=== PATIENT | female | born 1970 | race Caucasian/White ===

== ENCOUNTER 2018-02-14 08:58 | Outpatient (CLI) | payer BC, SELFPAY ==
--- NOTE | 2018-02-14 09:00 | SATEXT_ITS ---
Assessment: Ms. Khanna presents for nutritional counseling for unintentional weight gain. She presents very upset as she weighed herself this morning and she was 200 lbs on her scale. She is approximately 66. Her BMI is 34 consistent with class 1 obesity. She verbalizes that her weight gain is very frustrating as she eats healthfully and moderately and she is physically active every day. She runs and swims, sometimes both, daily. She states that her thyroid has been checked and it is normal. She reports having done the [employer] plan which is packaged foods and 800 calories. She lost 25 lbs however , understandably, this eating plan is not something reasonable to keep up with and she states she is not one for packaged foods. She grows her own food and otherwise eats minimally processed foods. Nutritional Diagnosis: Unintentional weight gain as evidenced by patient history. Class 1 obesity as evidenced by BMI of 34 kg/m2. Intervention: Acknowledged how frustrating it must feel to be eating healthfully and moderately and to be so physically active and still gaining weight. We did talk about taking the focus off the weight and looking at other measures of health such as physical fitness being very important in preventing chronic disease. I also asked Ms. Khanna if her clothing size had changed with her weight gain. She said it had not and in fact she may states she may have come down in inches. I asked her to acknowledge her lost inches, her muscle mass, and physical strength and not place such a high focus on the number on the scale. Nonetheless, that number was very important to her and in fact losing weight would certainly be beneficial. To that end, we discussed that with stress and with age, sometimes our bodies metabolize carbohydrates differently. Although she eats healthfully, I suggested we look at the composition of her meals and that we change the proportions so that her meals and one snack are low in carbohydrate and high in protein and moderate in fat. Provided written materials. We revamped her current eating plan. Ms. Khanna verbalized an excellent understanding of the information. Monitoring and Evaluation: 1. For now, Ms. Khanna will self monitor her progress. 2. She will evaluate her nutrition care plan and adjust accordingly and she will follow up with me as needed. I encouraged her to call me and we can follow up in person at any time.
== END 2018-02-14 08:59 ==
PROVIDERS: PCP Nurse Practitioner; Visit Provider Dietitian, Registered
DX: E66.8 Other obesity (principal); Z71.3 Dietary counseling and surveillance
CPT/HCPCS: 97802

== ENCOUNTER 2020-01-09 07:40 | Outpatient (CLI) | payer BC, SELFPAY ==
[2020-01-14 16:12] LABS: SARS-CoV-2 RNA Undetected (Undetected); SARS-CoV-2 Specimen Source Nasopharynx
== END 2020-01-09 08:00 ==
PROVIDERS: PCP Nurse Practitioner; Visit Provider Nurse Practitioner
DX: Z11.59 Encounter for screening for other viral diseases (principal)
CPT/HCPCS: U0003

== ENCOUNTER 2020-04-23 08:29 | Outpatient (CLI) | payer BC, SELFPAY ==
[2020-04-26 04:47] LABS: Patient Race White; SARS-CoV-2 RNA Undetected (Undetected); SARS-CoV-2 Specimen Source Nasal
== END 2020-04-23 08:49 ==
PROVIDERS: PCP Nurse Practitioner; Visit Provider Family Medicine
DX: J02.9 Acute pharyngitis, unspecified (principal)
CPT/HCPCS: U0003

== ENCOUNTER 2022-02-11 12:31 | Day surgery (SDC) | payer OTHER, SELFPAY ==
--- NOTE | 2022-02-11 05:40 | COLE_ITS ---
Colonoscopy Report Date of procedure: 02/11/22 Pre-op diagnosis general: Colon Cancer Screening Post-op diagnosis procedure note: other (diveticulosis and polyps) Procedure: Colonoscopy with polypectomy Surgeon: Klarissa Saul Anesthesia Type: General:No Airway Estimated blood loss (mL): 2 Pathology: other (descending polyp and sigmoid polyp) Complications: None Disposition: same day Indications: The patient is here for Colonoscopy pre-op. She has no family history of colon cancer. She has not had any bowel habit changes. -Discussed colonoscopy bowel prep as well as the procedure. Discussed possible complications of the procedure to include bleeding, pain, perforation, missed small lesion/polyp, sore throat, aspiration and adverse reaction to the medications. Questions were answered to patient?s satisfaction. No guarantees were implied or given.? Prep: Miralax/Dulcolax Procedure Start Time: 14:17 Procedure End Time: 14:47 Retraction Time: 6 minutes Findings: 2 small polyps moderate sigmoid diverticulosis Procedure Description: After informed consent was obtained the patient was taken to the procedure room and placed in a left decubitous position. Monitors were applied and a time out was done. The patients name, date of , procedure, allergies to medicat ions and metal in their body was reviewed. The patient was then sedated. Once sedated and comfortable a rectal exam was done. External exam was normal. Internal exam revealed a normal sphincter tone and no palpable masses. The scope was then introduced and retro-flexed. No internal hemorrhoids, polyps or masses were identified on retro-flexion. The scope was then advanced to the cecum without difficulty. The ileocecal vlave and appendiceal orifice were identified. The prep was good. The scope was then slowly retracted over 6 minutes back into the rectum. Polyps were removed with cold forceps in the descending colon x1 and sigmoid colon x1. There was moderate sigmoid diverticulosis noted. The scope was removed and the patient was woken up and taken back to Same day surgery in stable condition. The patient tolerated the procedure well and there were no immediate complications.
--- NOTE | 2022-02-11 05:41 | W.PM.DSUDISC ---
Discharge Plan Disposition Patient Disposition: HOME Condition: Good Discharge Details Reason For Visit: colon cancer screening Attending Provider: Klarissa Saul Primary Care Provider: Cynthia Alford Home Meds and New Rx's Prescriptions: Continued Mirena 20 mcg/24 hours (5 yrs) 52 mg intrauterine device 1 device IY ONCE sertraline 100 mg tablet 100 mg PO DAILY Qty: 90 3RF meclizine 25 MG tablet,chewable 25 mg PO TID PRNQty: 30 Discontinued bisacodyl [Dulcolax (bisacodyl)] 5 mg tablet,delayed release (DR/EC) 5 mg PO ONCE Qty: 4 0RF Rx Instructions: Take according to provider's instructions for colonoscopy prep. polyethylene glycol 3350 17 gram/dose powder 17 g PO ONCE Qty: 238 0RF Rx Instructions: To be taken as directed by prescriber's office for colonoscopy prep. Discharge Instructions Instructions: Diverticulosis (DC) Additional Instructions: Findings: 2 small polyps Diverticulosis Follow up: will depend on final pathology results Please call if you develop: fevers >101.5 Nausea or Vomiting Abdominal pain that is not transient Rectal bleeding that is more then a tbsp A hard abdomen and inability to pass gas DAY SURGERY UNIT POST ENDOSCOPY INSTRUCTIONS Instructions for everyone who is given Anesthesia: For your safety, please do the following for the next 24 Hours: a. Do not drive or operate dangerous equipment b. Do not drink alcohol beverages or use any recreational drugs for the first 24 hours or while taking pain medications. The medications in your body may have a reaction that can be dangerous. c. Do not make any important decisions or sign any important papers 1. Generally there are no restrictions on your activity after a day or so has gone by, but you may feel a bit fatigued for a few days. 2. After you arrive home you may have a light meal and return to a normal diet as you can tolerate it without feeling sick to your stomach. 3. After surgery, you may feel pain or discomfort. This should be only transient, but if it persists please contact your doctor. 4. If there are any questions regarding the findings of your procedure, please feel free to contact your doctor. 6. If you are unable to contact your doctor with a problem, contact the hospital at [phone]. 7. Continue all your regular medications unless directed otherwise. I understand the above instructions and have no questions. Signature of Patient or Responsible Adult Escort Date/Time Name of Responsible Adult Escort Signature of Nurse Date/Time Activity:: Activity as Tolerated Diet:: high fiber diet Discharge Orders Discharge Orders: Discharge Order (Routine); Ordered 02/11/22 Ordered By: Klarissa Saul
[2022-02-11 12:41] VITALS: BP 113/78; PULSE 65; RESP 16; TEMP 36.7; O2SAT 96
[2022-02-11] MEDS: Lactated Ringers 1,000 ML 80 ML IV (12:54)
--- NOTE | 2022-02-11 13:22 | W.ANESPRE ---
General Info Date of Service Date Performed: 02/11/22 Height: 5 ft 3.75 in Weight: 91.7 kg Body Mass Index (BMI): 34.9 Surgical Procedure: Operation Date: 02/11/22 12:35 Proposed Procedure Side Surgeon p Colonoscopy Klarissa Saul MD Meds Allergies and Home Medications Allergies Allergy/AdvReac Type Severity Reaction Status Date / Time No Known Drug Allergies Allergy Verified 02/11/22 12:47 Home Medication Medication Instructions Recorded meclizine 25 mg chewable tablet 25 mg PO TID PRN #30 tab-caps 03/31/17 levonorgestrel 20 mcg/24 hours (7 1 device intrauterine ONCE 01/19/19) 52 mg intrauterine device (Mirena) sertraline 100 mg tablet 100 mg PO DAILY #90 tabs 01/29/21 bisacodyl 5 mg tablet,delayed 5 mg PO ONCE #4 tabs 01/16/22 release (Dulcolax (bisacodyl)) polyethylene glycol 3350 17 17 g PO ONCE #238 grams 01/16/22 gram/dose oral powder Current Visit Medications: Current Medications Generic Name Dose Route Start Last Admin Trade Name Freq PRN Reason Stop Dose Admin Hyoscyamine Sulfate 0.125 mg 02/11/22 05:45 Hyoscyamine 0.125 Mg Sl/Oral/Chew SL DIRECTED PRN Ringer's Solution 1,000 mls @ 80 mls/hr 02/11/22 06:00 02/11/22 12:54 IV 03/12/22 23:59 80 mls/hr INFUSION VJ Administration IV Miscellaneous Supplies 1 each 02/11/22 06:00 Iv Access IV 03/12/22 23:59 DIRECTED VJ Ondansetron HCl 4 mg 02/11/22 05:45 Ondansetron 4 Mg/2 Ml Vial IVP Q4H PRN PRN Nausea / Vomiting Sodium Chloride 0 ml 02/11/22 06:00 Normal Saline Flush 10 Ml Syr IV 03/12/22 23:59 PRN PRN Sodium Chloride 0 ml 02/11/22 06:00 Normal Saline 10 Ml Vial IJ 03/12/22 23:59 DIRECTED PRN Sterile Water 0 ml 02/11/22 06:00 Water,Injection,Sterile 10 Ml Vial IJ 03/12/22 23:59 DIRECTED PRN PFSH Active Problems Active Problems: Problem Status Onset Code Colon cancer screening Z12.11 Medical History Medical History Anxiety Depression IUD check up Sore throat Vertigo (01/29/17) likely labyrinthitis Surgical History Surgical History Bilateral Reduction Mammoplasty (~12/2005) Adenoids Tonsillectomy and adenoidectomy Tobacco Smoking/Tobacco Use Status: Former Tobacco Use Passive smoking exposure: No Second hand exposure: No Alcohol Alcohol Intake: current Alcohol intake frequency: a few times a month Alcohol type: wine Substance Use Substance use: Never Substance use type: does not use Vital Signs and Lab Results Vital Signs Most Recent Vital Signs in EMR: Most Recent Vital Signs Temp Pulse Resp BP Pulse Ox 36.7 C 65 16 113/78 96 02/11/22 12:41 02/11/22 12:41 02/11/22 12:41 02/11/22 12:41 02/11/22 12:41 Point of Care Results Point of Care Results: POC- Test(urine) Negative 02/11/22 12:56 Lab Results Blood Type / Crossmatch: No Data to Display Complete Blood Count: No Data to Display Complete Metabolic Panel: No Data to Display Liver Function Panel: No Data to Display Coagulation Panel: No Data to Display Cardiac Panel: No Data to Display Arterial Blood Gas: No Data to Display Venous Blood Gas: No Data to Display Pancreas Panel: No Data to Display Thyroid Panel: No Data to Display Infectious Disease: No Data to Display Blood Cultures: No Data to Display Toxicology Panel: No Data to Display Panel: No Data to Display Anesthesia Assessment and Plan Anesthesia History Personal History: No History of Anesthesia Complications and Unknown Anesthesia History Family History: No Family History of Anesthesia Complications Exercise Tolerance Exercise Tolerance: Metabolic Equivalents>4 Pertinent Negatives Pertinent Negatives: No Symptoms of GERD, No Major Cardiovascular Symptoms or Complaints, No Major Pulmonary Symptoms or Complaints and No History of CVA/TIA Cardiac & Pulmonary Exam Cardiac Exam: Normal S1/S2 Heart Sounds Pulmonary Exam: Clear Bilateral Breath Sounds Implantable Cardiac Device Does patient have a Pacemaker or an ICD?: No Airway Exam Known Difficult Airway: No Mallampati Class: 3 Mouth Opening: Normal (> 3cm) Thyromental Distance: Greater than 3 cm Neck Range of Motion: Full ROM Neck Circumference: Normal Teeth Condition: Normal Dentition ASA Classification ASA Score: ASA 2 Emergency Case?: No NPO Status NPO Status: NPO Clears >2 hours, Solids >8 hours Status Status: Negative HCG Anesthesia Plan Resuscitation Status: Full Code Anesthesia Technique: General Anesthesia Airway Planned: Natural Airway Monitors Used: Standard Monitors
[2022-02-11 13:24] VITALS: BMI 34.9
--- NOTE | 2022-02-11 14:40 | BOWEL_PTH ---
PATIENT: Connie Khanna LOC: [facility] U#:[id number] AGE/SX: 51/F ROOM: RE02/11/[address]: Klarissa Saul MD : 1970 BED: DIS: 02/11/2022 SPEC #: [id number] RECD: 02/11/22 17:55 STATUS: ADAL RE #: [id number] SERA: 02/11/22 14:[address]: Klarissa Saul DEPT: Surgical Specimen RECD BY: Keya Campuzano ENTERED: 02/11/22 17:55 SP TYPE: Bowel OTHR DR: Cynthia Alford DO Tissues: 1 - BIOPSY BOWEL 2 - BIOPSY BOWEL Procedures: GROSS AND MICRO LEVEL 4 Comments: [id number]
[2022-02-11 14:54] VITALS: BP 103/77; PULSE 72; RESP 17; TEMP 36.6; O2SAT 96
--- NOTE | 2022-02-11 15:13 | W.ANESPOSTOP ---
Postoperative Evaluation Date, Time and Location Date Performed: 02/11/22 Time Performed: 14:54 Patient Location: Day Surgery Unit Vital Signs Most Recent Imported Vital Signs: Most Recent Vital Signs Temp Pulse Resp BP Pulse Ox 36.6 C 72 17 103/77 96 02/11/22 14:54 02/11/22 14:54 02/11/22 14:54 02/11/22 14:54 02/11/22 14:54 Pain Score Most Recent Pain Score: Most Recent Pain Score Pain Level 0 02/11/22 14:54 Assessment Mental Status: Awake (Alert & Oriented to Patient Baseline) Airway and Respiratory Function: Patent airway with normal (patient baseline) respiratory exam Cardiovascular Function: Hemodynamically Stable Hydration Status: Adequately Hydrated Nausea & Vomiting: No Nausea or Vomiting Pain: Pt. Denies Any Pain Peripheral Nerve Block: Patient did not receive a nerve block
[2022-02-11 15:19] VITALS: BP 107/71; PULSE 61; RESP 16; TEMP 36; O2SAT 95
== END 2022-02-11 15:50 | disposition home or self-care (01) ==
PROVIDERS: PCP Student in an Organized Health Care Education/Training Program; Visit Provider Surgery
PROC: 0DJD8ZZ Inspection of Lower Intestinal Tract, Via Natural or Artificial Opening Endoscopic (ICD-10-PCS; CPT 45378; principal; 2022-02-11 12:30)
DX: Z12.11 Encounter for screening for malignant neoplasm of colon (principal); K63.5 Polyp of colon; K57.30 Diverticulosis of large intestine without perforation or abscess without bleeding
CPT/HCPCS: 45380; 88305; J2704

== ENCOUNTER → 2022-04-13 00:48 | Outpatient (CLI) | payer OTHER, SELFPAY ==
--- NOTE | 2022-04-13 06:30 | DI.MAMMO_ITS ---
Exam(s) MAMMO SCREENING EXAM: MAMMO SCREENING CLINICAL HISTORY: screening Z12.39 TECHNIQUE: Bilateral full field digital CC and MLO mammographic images were obtained with 3D tomosyn thesis and utilizing computer aided detection (CAD). COMPARISON: Available for comparison. FINDINGS: Masses/Architectural Distortion: None seen. Microcalcifications: No suspicious pleomorphic-type are seen. Skin Thickening/Nipple Retraction: None. IMPRESSION: 1. No significant interval change with no specific features of malignancy noted. 2. Unless there is more urgent need, screening mammography is recommended, as per [place] [employer] guidelines. BI-RADS Category 1 - Negative Breast Density - Category B - Scattered areas of fibroglandular density Breast density category C or D implies that the patient has dense breast tissue. Dense breast tissue is very common and is not abnormal but dense breast tissue can make it harder to find cancer on a ma mmogram. Also, dense breast tissue may increase their breast cancer risk. This information about the result of the mammogram report was provided to the patient to raise their awareness. Use this report when you speak with the patient about their risks for breast cancer, which includes their family hist ory. At that time, you may recommend for more screening tests (Ultrasound or MRI) as they might be us eful based on their risk. A negative radiographic report should not delay biopsy if a dominant or clinically suspicious mass is present. Up to ten percent of cancers are not identified on mammography. A negative report may reinforce clinical impression. Adenosis and dense breasts may obscure an underlying neoplasm. False positive reports average 6 to 10%. Patient will receive a letter notifying them of these results.
== END ==
PROVIDERS: PCP Student in an Organized Health Care Education/Training Program; Visit Provider Nurse Practitioner
DX: Z12.31 Encounter for screening mammogram for malignant neoplasm of breast (principal)
CPT/HCPCS: 77063; 77067

== ENCOUNTER 2022-05-11 09:15 | Outpatient (REF) | payer OTHER, SELFPAY ==
--- NOTE | 2022-05-11 08:40 | PAPFT_PTH ---
PATIENT: Connie Khanna LOC: [facility] U#:[id number] AGE/SX: 52/F ROOM: RE05/11/[address]: Jennifer Cerrato MD : 1970 BED: DIS: 05/11/2022 SPEC #: [id number] RECD: 05/11/22 13:07 STATUS: CRISTHIANRaciel REGabbie #: [id number] SERA: 05/11/22 08:[address]: Jennifer Cerrato DEPT: [facility] Cytology RECD BY: Keya Campuzano ENTERED: 05/11/22 13:07 SP TYPE: PAPFT OTHR DR: Cynthia Alford, DO Tissues: 1 - CX/ENDOCX FOR PAP SMEARS Procedures: PAP THIN PREP/UVM Screening HPV DNA PROBE Comments: (CHLAMYDIA/GC)
[2022-05-12 15:35] LABS: Chlamydia Result Negative (Negative); GC Result Negative (Negative)
== END 2022-05-11 09:16 | disposition home or self-care (01) ==
LOC: LBN 09:15
PROVIDERS: PCP Student in an Organized Health Care Education/Training Program; Visit Provider Obstetrics & Gynecology
DX: Z12.4 Encounter for screening for malignant neoplasm of cervix (principal); Z11.51 Encounter for screening for human papillomavirus (HPV); Z11.3 Encounter for screening for infections with a predominantly sexual mode of transmission
CPT/HCPCS: 87491; 87591; 88142; 87624

== ENCOUNTER 2022-12-18 16:34 | Emergency (ER) | payer OTHER, SELFPAY ==
[2022-12-18] VITALS (7 sets, daily range): BP systolic 126–161; BP diastolic 82–91; PULSE 69–99; RESP 10–22; TEMP 36.8; O2SAT 98–100
--- NOTE | 2022-12-18 16:50 | ED.GENADUL_ITS ---
Discharge Plan Disposition Patient Disposition: Home Discharge Details Clinical Impression: Sore throat, Anxiety Primary Care Provider: Diana Prado ED Provider: Popeye Herman [place] Meds and New Rx's Prescriptions: No Action Wegovy 2.4 mg/0.75 mL pen injector 2.4 mg subcut QWEEK Qty: 3 0RF Discharge Instructions Instructions: Anxiety (ED) Additional Instructions: This does not appear to be an allergic reaction. May potentially be coming down with URI. Suspect a fair amount of your difficulty breathing was related to anxiety. Please follow-up with primary care next week. Return to the ED for any change in voice, worsening trouble breathing, rash, persistent vomiting, other concerns. Medical Decision Making Patient presenting to ED with concern for allergic reaction. She looks well with normal vital signs and room air saturations. Oropharynx is clear and there is no stridor, hoarseness, respiratory distress. Lungs clear. Not convinced that this is an allergic reaction. May be the beginning of a URI. More likely anxiety related. She is observed in the department for period of time with no change in vitals or pulse ox. Feel she is safe for discharge home. Follow-up primary care next week. Return precautions provided. HPI General Mode of arrival: ambulatory . Date/Time Provider Initiated Documentation: 12/18/22 16:50 . Limitations to Documentation: no limitations . Information obtained by: patient . HPI Narrative: Patient presents to ED with concern for allergic reaction. Patient reports working outside being exposed to a large amount of pollen. Patient reports developing runny nose and sore throat. She does not feel that she is sick with a cold. She feels that this is likely an allergic reaction. She continues to have worsening throat discomfort, feels like a lump in her throat. She did take Benadryl at home. On arrival here extremely anxious and hyperventilating. Denies having any type of chest pain, vomiting. Denies any rash or pruritus. Related Data Home Medications Medication Instructions Recorded Confirmed semaglutide (weight loss) 2.4 2.4 mg (0.75 mL) subcut QWEEK #3 mL 11/17/22 mg/0.75 mL subcutaneous pen injector (Wegovy) Previous Rx's Medication Instructions Recorded semaglutide (weight loss) 2.4 2.4 mg (0.75 mL) subcut QWEEK #3 mL 11/17/22 mg/0.75 mL subcutaneous pen injector (Wegovy) Allergies Allergy/AdvReac Type Severity Reaction Status Date / Time No Known Drug Allergies Allergy Verified 09/28/22 15:30 General Stated Complaint: Allergic LUKE: 3 Review of Systems Narrative: Per HPI PFSH All Active Problems (Updated 12/18/22 @ 17:38 by Popeye Herman MD) Sore throat (Acute) Anxiety (Chronic) Colon cancer screening (Acute) Obesity (Chronic) Hyperplastic colon polyp (Acute) Medical History Anxiety Depression ZACHARY (stress urinary incontinence, female) Vertigo (01/29/17) likely labyrinthitis Surgical History Bilateral Reduction Mammoplasty (~12/2005) Adenoids History of colonoscopy (~01/2022) Tonsillectomy and adenoidectomy Family History Mother Mental disorder Depression Sister Mental disorder Manic Depression Brother Mental disorder Depression, BiPolar Paternal Grandmother Neoplasm Breast Social History Smoking/Tobacco Use Status: Former Tobacco Use Quit Date: 06/28/91 Tobacco: How many years used: 15 Second Hand Exposure: No Smoking risk assessment performed?: Yes Alcohol Intake: current Alcohol Intake frequency: a few times a month Alcohol type: wine Drug use: Never Substance use type: does not use Adopted: No Caregiver/Support person: No Foster care: No Household members: spouse and children Housing: house Number of Children: 1 number of grandchildren: 0 Communication Needs: None Education Level: other Details: Working on [employer] Do you need help understanding health information?: Rarely 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 - [employer] Pets and animals: Yes Pets and animals: cat(s) and dog(s) Sexually active: Yes Do you think of yourself as: straight/heterosexual Current gender identity: female What is your relationship status?: How often do you talk on the phone with friends or family?: three or more times per week How often do you get together with friends or relatives?: three or more times per week Do you belong to any clubs or organized social groups?: no Panel score (0-1 are the most socially isolated patients): 2 What type of physical activity do you participate in: walking and swimming Duration: 15-30 minutes/day Frequency: daily Special raul needs: No Seatbelt use: always Helmet use: Yes Drive intox or ride w/intox screw driver operator: No Working smoke detector in home: Yes Fire extinguisher in home: Yes Carbon monox detector in home: Yes Do you feel safe at home: Yes Do you feel safe in your relationship?: Yes Victim of physical abuse: No Victim of emotional abuse: No History History Para 1 Hx # Term Pregnancies Multiple births Hx # Pregnancies Ectopic pregnancies AB induced Hx Number of Living Children 1 AB spontaneous Exam Narrative Exam Narrative: Const: WDWN female in NAD. HEENT: NC/AT. Normal facial exam. OP is clear without erythema, swelling, exudate. Eyes: Normal conjunctiva and sclera. Neck: Supple. Trachea midline. No stridor. Lungs: Normal respiratory effort. Lungs are clear. Cor: RRR without murmur/gallop. Good radial pulses. GI: Soft. NT/ND. Neuro: A+O x 3. Normal speech, mentation, gait. Cranial nerves II - XII grossly intact. No gross motor or sensory deficit. Ext: No C/C/E. Skin: Warm and dry without rash. Course Vital Signs Vital signs: Vital Signs Temperature 98.2 F 12/18/22 16:38 Pulse 99 H 12/18/22 16:38 Respiratory Rate 22 12/18/22 16:38 Blood Pressure 130/82 12/18/22 16:38 Pulse Oximetry 100 12/18/22 16:38 Temperature 98.2 F 12/18/22 16:38 Temperature Source Oral 12/18/22 16:38 Pulse 99 H 12/18/22 16:38 Respiratory Rate 22 12/18/22 16:38 Respiratory Effort Normal 12/18/22 16:43 Blood Pressure 130/82 12/18/22 16:38 Blood Pressure Position Sitting 12/18/22 16:38 Pulse Oximetry 100 12/18/22 16:38 Oxygen Delivery Method Room Air 12/18/22 16:38 Oxygen Flow Rate 0 12/18/22 16:38
== END 2022-12-18 17:51 | disposition home or self-care (01) ==
PROVIDERS: Emergency Provider Emergency Medicine; PCP Nurse Practitioner
DX: J02.9 Acute pharyngitis, unspecified (principal); F41.9 Anxiety disorder, unspecified
CPT/HCPCS: 99281; 99282

== ENCOUNTER 2023-03-23 08:32 | Outpatient (CLI) | payer OTHER, SELFPAY ==
--- NOTE | 2023-03-23 08:00 | DI.RAD_ITS ---
Exam(s) XR SHOULDER RT COMPLETE 2+V EXAM: XR SHOULDER RT COMPLETE 2+V CLINICAL HISTORY: right shoulder pain. TECHNIQUE: 2D digital imaging was performed of the right shoulder. Two images were obtained. Grash ey and axillary views were obtained. COMPARISON: No exams were available for comparison FINDINGS: BONES: No acute fracture is present. No bony destructive lesion is seen. JOINTS: No dislocation present. The acromioclavicular and glenohumeral joints are well maintained. SOFT TISSUE: Normal. IMPRESSION: Unremarkable radiographs of the right shoulder. DATA REPOSITORY: RADIATION DOSE DELIVERED:
== END 2023-03-23 08:33 | disposition home or self-care (01) ==
LOC: DIORS 08:32
PROVIDERS: PCP Nurse Practitioner; Visit Provider Student in an Organized Health Care Education/Training Program
DX: M25.511 Pain in right shoulder (principal)
CPT/HCPCS: 73030

== ENCOUNTER → 2023-04-07 00:28 | Outpatient (CLI) | payer OTHER, SELFPAY ==
--- NOTE | 2023-04-07 11:00 | DI.MRI_ITS ---
Exam(s) MR UPPER JOINT RT WO EXAM: MR UPPER JOINT RT WO CLINICAL HISTORY: R SHOULDER PAIN,rt rotator cuff tear,m75.101. TECHNIQUE: Multiplanar multisequence MRI was performed. COMPARISON: 23 March 2023 plain films FINDINGS: BONES: Red marrow reconversion.. Somewhat prominent vascularity. Findings may be secondary to anemi a. Clinical correlation recommended. JOINTS:The acromioclavicular joint shows mild spurring and a small amount of fluid. There may be mil d impingement on the supraspinatus muscle tendon junction.. The glenohumeral joint shows a small carmel unt of fluid. TENDONS: Supraspinatus: Abnormal thickening and edema. Severe partial tear distally. Infraspinatus: Unremarkable. Subscapularis: Unremarkable. Teres Minor: Unremarkable. Biceps and Olin: Unremarkable. MUSCLES: Unremarkable. GLENOID LABRUM: Unremarkable on this noncontrast examination. SOFT TISSUES: Unremarkable. OTHER: Subacromial and subdeltoid bursae contains a small amount of fluid. . IMPRESSION: Severe partial tear of the supraspinatus tendon. Red marrow reconversion. Clinical correlation recommended. DATA REPOSITORY:
== END ==
PROVIDERS: PCP Nurse Practitioner; Visit Provider Student in an Organized Health Care Education/Training Program
DX: S46.011A Strain of muscle(s) and tendon(s) of the rotator cuff of right shoulder, initial encounter (principal); X58.XXXA Exposure to other specified factors, initial encounter
CPT/HCPCS: 73221

== ENCOUNTER 2023-04-30 09:42 | Day surgery (SDC) | payer OTHER, SELFPAY ==
[2023-04-30] VITALS (10 sets, daily range): BP systolic 106–133; BP diastolic 54–77; PULSE 69–87; RESP 15–19; TEMP 36.1–36.6; O2SAT 93–98; BMI 31.3
--- NOTE | 2023-04-30 07:22 | W.PM.DSUDISC ---
Date of service: 04/30/23 Time of Service: 15:00 Discharge Plan Disposition Patient Disposition: Home Condition: Stable Discharge Details Attending Provider: Isaac Parker Primary Care Provider: Diana Prado Home Meds and New Rx's Prescriptions: New naproxen 250 mg tablet 250 - 500 mg PO BID PRNQty: 40 0RF Rx Instructions: take with a meal aspirin 81 mg tablet,delayed release (DR/EC) 81 mg PO DAILY 7 Days Qty: 7 0RF oxycodone 5 mg tablet 5 - 10 mg PO Q4H MDD 30 mg PRN (Reason: moderate to severe pain) Qty: 18 0RF Continued sertraline 100 mg tablet 100 mg PO DAILY Qty: 90 3RF hydroxyzine HCl 10 mg tablet 10 mg PO TID PRN (Reason: anxiety) Qty: 60 0RF Rx Instructions: 1-2 tabs TID PRN anxiety Wegovy 2.4 mg/0.75 mL pen injector 2.4 mg subcut QWEEK Qty: 3 5RF Discontinued ibuprofen [Advil] 200 mg tablet 200 mg PO ONCE Discharge Instructions Additional Instructions: Surgery: Right shoulder arthroscopy with rotator cuff repair (supraspinatus), biceps tenodesis, extensive debridement (including capsular release), and subacromial decompression with manipulation under anesthesia Activity: For 6 weeks, you should keep your arm at your side in a neutral position at all times except for physical therapy. Do not try to lift or raise your arm using your own muscles. You should use the sling whenever you are out of the house. You may have to adjust the abduction pillow or remove it for comfort. At home it is best to remove the sling and rest the arm on a pillow at your side or support the operative side with your other hand. You may allow the arm to dangle at your side. A physical therapy prescription will be sent electronically to begin in about 3 weeks. Prescriptions: Aspirin 81 mg take 1 daily to prevent a blood clot for 7 days Naproxen 250 mg take 1-2 every 12 hours with a meal as needed for moderate pain Oxycodone 5 mg take 1-2 every 4-6 hours as needed for severe pain You may use [id number]-[id number] Tylenol (acetaminophen) as needed for mild pain. These pain medications may be taken all at once or in different combinations as needed. Also, recommend Colace (docusate) as a stool softener as surgery and pain medicine cause constipation. You may try [id number]-kaguzug diphenhydramine (Benadryl) 25-50 mg nightly as a sleep aid Dressings: Remove shoulder bandage after 3 days. Leave the sticky Steri-Strips in place until they fall off or remove them after you shower. Cover the incisions with Band-Aids or leave them open to air. You may shower after 5 days. Follow-up: 10-[address] Parker You may take off the leg compression stockings this evening at home. You may also leave them on a few days longer if you have a history of leg swelling or edema. Let us know right away if you develop any redness, drainage, fevers, chest pain, or trouble breathing. Do not drink alcohol or drive for at least 24 hours after anesthesia. Please call the office during business hours with any questions or concerns. Discharge Orders Discharge Orders: Discharge Order (Routine); Ordered 04/30/23 Ordered By: Isaac Parker DS: Diagnosis Discharge Diagnosis (1) Right rotator cuff tear: Status: Acute (2) Adhesive capsulitis of right shoulder: Status: Acute (3) Bursitis of right shoulder: Status: Acute (4) SLAP lesion of right shoulder: Status: Acute
--- NOTE | 2023-04-30 07:23 | ROE_ITS ---
Date of service: 04/30/23 Time of Service: 13:00 Operative Note Operative Note DATE OF PROCEDURE: 04/30/23 PRE-OP DIAGNOSIS: Right: 1. Rotator cuff tear 2. SLAP tear 3. Bursitis 4. Adhesive capsulitis POST-OP DIAGNOSIS: same PROCEDURE: Right: 1. Rotator cuff repair, CPT# 77417. This involved repair of the supraspinatus using an anchor and sutures to reattach the rotator cuff back to the footprint of the greater tuberosity. 2. Arthroscopic biceps tenodesis, CPT# 74925. This involved arthroscopically suturing and reattaching the long head of the biceps tendon to the proximal humerus at the superior margin of the bicipital groove with a screw at the correct tension. 3. Extensive debridement, CPT# 81597. This involved using arthroscopic hand instruments, power instruments, and radiofrequency instruments to release the long head of the biceps tendon and debride areas of anterior and posterior labral fraying, SLAP tearing, marked anterior and rotator interval synovitis and capsulitis, debride mild chondromalacia about the biceps groove, and perform an anterior capsular release and a limited posterior capsule release working within the glenohumeral joint anteriorly, superiorly and posteriorly. 4. Subacromial decompression with partial acromioplasty, CPT# 44433. This involved using arthroscopic power instruments and a radiofrequency wand to complete a bursectomy and smooth the undersurface of the acromion. 5. Shoulder manipulation under anesthesia, CPT #26833: This involved preoperative guided manipulation to restore full range of motion prior to undergoing arthroscopic repair. The dermatology physician assistant was medically required in order to help assist in techniques above, which require positioning the arm, holding the arthroscope, and manipulating multiple instruments and sutures at the same time. This cannot be done without the help of an experienced dermatology physician assistant. SURGEON: Isaac Parker CRINKLING MACHINE OPERATOR: Lali Stroud ANESTHESIA TYPE: General LMA/ETT and Primary Nerve Block Refer to Anesthesia Record ESTIMATED BLOOD LOSS: 10 PATHOLOGY: none sent COMPLICATIONS: None Patient was transported to: PACU Patient's condition: stable Implants: Arthrex: 4.75mm knotless SwiveLock x 1, 5.5mm SwiveLock x 1 Indications: The patient was diagnosed with the above conditions and appropriately indicated for surgical intervention. Please see complete medical record for details. Findings: Exam under anesthesia: Moderately limited forward elevation and external rotation with stiff endpoints. No instability. Glenohumeral joint: Significant synovitis, anterior capsular adhesions through the rotator interval involving the subscapularis, anterior capsule, and [facility] L. Subscapularis intact. Moderate anterior labral fraying, significant biceps anchor synovitis and biceps injection, mild posterior labral fraying. Moderate focal chondromalacia superior aspect bicipital groove. Mild humeral head and anterior central glenoid chondromalacia. Mild thickness moderately large articular sided supraspinatus tearing. Diminished axillary recess space. Subacromial space: Significant bursitis and bursal adhesions. Markedly inflamed injected bursal rotator cuff. Moderately impinging medial acromion and irregular acromion on bursal rotator cuff. Small area of high-grade central supraspinatus tearing with chronic thinning and tendon fibrillations throughout with soft bone and bone cyst at the area at and adjacent to the more significant structural tearing. Intact infraspinatus. Procedure Description: In the operating room, general anesthesia was induced. All bony prominences were well-padded. Preoperative antibiotics were administered. The correct patient, procedure, and side of the procedures were all verified prior to beginning. Bilateral shoulders were examined. The right shoulder had stiffness with range of motion about 115 degrees forward elevation and 35 degrees external rotation. Internal rotation at about 90 degrees 45 degrees, abduction about 90 degrees. These endpoints had firm, stiff feel. A short lever arm and gradual to steady gentle pressure was used to perform the manipulation alternating between external rotation at the side, forward elevation, and abduction with internal and external rotation. Deliberately, gradually and carefully excellent releases were felt going into forward elevation with less release needed and external rotation, and abduction internal rotation motion was restored as well. Range of motion was then tested and full. All endpoints were gently exaggerated. The shoulder joint remained stable. While the patient remained under anesthesia, all directions were stretched and repeated numerous times. The patient was then positioned in the beachchair position. The shoulder was prepped and draped in the usual sterile fashion. Posterior portal was made and arthroscope directed between the glenohumeral joint, which was significantly hemorrhagic given the inflamed shoulder and manipulation and redirected into the subacromial space to inspect the rotator cuff while the joint cleared. A lateral 50 yard line portal was established and Dee cannula inserted here. A superior anterior lateral portal was created as well with a passport cannula inserted here. A combination of power instruments and a radiofrequency ablator were used to debride bursitis anteriorly, posteriorly, and laterally as well as expose and smooth bone spurring on the undersurface of the acromion. The coracoacromial ligament was partially released. The bursectomy was completed viewing laterally and working from posteriorly and the rotator cuff was thoroughly inspected. There was a central bursal area of concern of the supraspinatus that was marked for later probing and repair. The arthroscope was redirected back into the glenohumeral joint which was flushed from hemorrhagic clots. Starting through the posterior portal a standard complete diagnostic arthroscopy was performed of the glenohumeral joint including inspection of the long head of the biceps, anterior and superior labrum, subscapularis tendon, supraspinatus and infraspinatus tendons, and axillary recess. The glenoid and humeral head cartilage as well as the posterior labrum were inspected from an anterior viewing portal. Significant findings and interventions noted above. Significant time was spent releasing the anterior capsule, restoring rotator interval structures, using arthroscopic scissors to release the [facility] L and free the subscapularis from capsular adhesions. An all-arthroscopic suprapectoral biceps tenodesis was performed through an anterior portal using a Loop N Tack method with a SutureTape FiberLink cinched around and through the tendon. The biceps was tenotomized from the labrum and fixated with a suture anchor at the superior margin of the bicipital groove. The knotless repair suture was then directed around the tendon, shuttled back through the anchor eyelet mechanism, and tensioned adding additional security to the repair. The biceps tendon was tested and had excellent fixation strength. The arthroscope was redirected back into the subacromial space. A needle had been placed adjacent to the acromion localized in the area of highest grade articular sided tearing. This needle was used to confirm the same site of bursal tendon problem. A posterior superior lateral portal was created and passport cannula placed. The rotator cuff was lightly debrided and attention was turned to the area of thinning about the central lateral supraspinatus corresponding to the area of MRI defect and bone cyst. The tendon diffusely had chronic fibrinous changes and thinning laterally. Blunt and sharp probes and tissue elevators were used to raise the supraspinatus from the lateral footprint to preserve length, the lateral tendon was quite thin yet still hemorrhagic and inflamed. The elevator was then fell into the bone cyst off the lateral margin centrally in the area of high-grade tearing. Elevators were used to continue to release the supraspinatus more medial and posterior until more appropriate staff attachments were encountered. The bone cyst was probed with soft bone in this area. Again corresponded to chronicity of this problem. The thinnest supraspinatus tissue was debrided laterally. Rasp was used to abrade the small area of exposed greater tuberosity. The tear was narrowly just barely full- thickness at its central component. The undersized punch was used in the bone cyst, which demonstrated a reasonable bone quality and would be used for suture anchor repair. The self retrieving suture passer was then used to shuttle an inverted horizontal mattress FiberTape through the central to posterior component of the thicker rotator cuff tissue for repair. The 90 degree lasso was then used to shuttle a suture tape FiberLink about the anterior central part of the tear and cinched on the lateral side of the anterior FiberTape bring the FiberTape up and over the top so the sutures together acted and compression down for tendon onto the tuberosity and the length also act in a ripstop configuration. The repair sutures were loaded on a 5.5 mm swivel lock anchor, which was oversized for the prepared bone cyst, and it deployed nicely with appropriate tension and bone fixation. The repair was inspected through range of motion and tested with excellent reapposition and stability. The shoulder was drained of arthroscopic fluid. All portal sites were copiously irrigated. These incisions were closed using 3-0 Monocryl in a buried fashion and then covered with Mastisol, Steri-Strips, Xeroform, dry gauze, and ABDs. The dressings were covered and secured with Medipore tape. The operative extremity was placed into a sling for immobilization. The patient awoke from anesthesia without complication and was transferred to the recovery room in a stable condition.
--- NOTE | 2023-04-30 08:53 | W.ANESPRE ---
General Info Date of Service Date Performed: 04/30/23 Height: 5 ft 3 in Weight: 80.286 kg Body Mass Index (BMI): 31.3 Surgical Procedure: Operation Date: 04/30/23 13:10 Proposed Procedure Side Surgeon p Shoulder Rotator Cuff Arthroscopic w/Extensive Debridement, Biceps Tenodesis, Subacromial Decompression, Manipulation Under Anesthesia Right Isaac Parker MD Meds Allergies and Home Medications Allergies Allergy/AdvReac Type Severity Reaction Status Date / Time No Known Drug Allergies Allergy Verified 04/30/23 10:36 Home Medication Medication Instructions Recorded hydroxyzine HCl 10 mg tablet 10 mg PO TID PRN anxiety #60 tabs 12/21/22 semaglutide (weight loss) 2.4 2.4 mg (0.75 mL) subcut QWEEK #3 mL 12/21/22 mg/0.75 mL subcutaneous pen injector (Wegovy) sertraline 100 mg tablet 100 mg PO DAILY #90 tabs 12/21/22 aspirin 81 mg tablet,delayed 81 mg PO DAILY prevent blood clot 04/30/23 release 7 days #7 tabs naproxen 250 mg tablet 250 - 500 mg (1 - 2 x 250 mg) PO 04/30/23 BID PRN #40 tabs oxycodone 5 mg tablet 5 - 10 mg (1 - 2 x 5 mg) PO Q4H 04/30/23 PRN moderate to severe pain #18 tabs Current Visit Medications: Current Medications Generic Name Dose Route Start Last Admin Trade Name Freq PRN Reason Stop Dose Admin Ringer's Solution 1,000 mls @ 30 mls/hr 04/30/23 06:00 IV 05/29/23 23:59 INFUSION VJ Cefazolin Sodium/Dextrose 2 gm in 50 mls @ 100 mls/hr 04/30/23 06:00 Ancef Duplex IVPB 04/30/23 16:00 PREOP [facility] IV Miscellaneous Supplies 1 each 04/30/23 06:00 Iv Access IV 05/29/23 23:59 DIRECTED VJ Oxycodone HCl 0 mg 04/30/23 07:22 Oxycodone 5 Mg Tab PO 05/30/23 07:21 Q3H PRN PRN Pain Sodium Chloride 0 ml 04/30/23 06:00 Normal Saline Flush 10 Ml Syr IV 05/29/23 23:59 PRN PRN Sodium Chloride 0 ml 04/30/23 06:00 Normal Saline 10 Ml Vial IJ 05/29/23 23:59 DIRECTED PRN Sterile Water 0 ml 04/30/23 06:00 Water,Injection,Sterile 10 Ml Vial IJ 05/29/23 23:59 DIRECTED PRN PFSH Active Problems Active Problems: Problem Status Onset Code Adhesive capsulitis of right shoulder M75.01 Bursitis of right shoulder M75.51 SLAP lesion of right shoulder S43.431A Right rotator cuff tear M75.101 Colon cancer screening Z12.11 Obesity E66.9 Hyperplastic colon polyp K63.5 Medical History Medical History Anxiety Depression ZACHARY (stress urinary incontinence, female) Vertigo (01/29/17) likely labyrinthitis Surgical History Surgical History Bilateral Reduction Mammoplasty (~12/2005) Adenoids History of colonoscopy (~01/2022) Tonsillectomy and adenoidectomy Tobacco Smoking/Tobacco Use Status: Former Tobacco Use Passive smoking exposure: No Second hand exposure: No Alcohol Alcohol Intake: current Alcohol intake frequency: a few times a month Alcohol type: wine Substance Use Substance use: Never Substance use type: does not use Prental History History Para 1 Hx # Term Pregnancies Multiple births Hx # Pregnancies Ectopic pregnancies AB induced Hx Number of Living Children 1 AB spontaneous Vital Signs and Lab Results Vital Signs Most Recent Vital Signs in EMR: Temp Pulse Resp BP Pulse Ox 36.1 C L 69 16 110/74 98 04/30/23 10:41 04/30/23 10:41 04/30/23 10:41 04/30/23 10:41 04/30/23 10:41 Lab Results Blood Type / Crossmatch: No Data to Display Complete Blood Count: No Data to Display Complete Metabolic Panel: No Data to Display Liver Function Panel: No Data to Display Coagulation Panel: No Data to Display Cardiac Panel: No Data to Display Arterial Blood Gas: No Data to Display Venous Blood Gas: No Data to Display Pancreas Panel: No Data to Display Thyroid Panel: No Data to Display Infectious Disease: No Data to Display Blood Cultures: No Data to Display Toxicology Panel: No Data to Display Panel: No Data to Display Anesthesia Assessment and Plan Anesthesia History Personal History: No History of Anesthesia Complications Family History: No Family History of Anesthesia Complications Exercise Tolerance Exercise Tolerance: Metabolic Equivalents>4 Pertinent Negatives Pertinent Negatives: No Symptoms of GERD, No Major Cardiovascular Symptoms or Complaints, No Major Pulmonary Symptoms or Complaints and No History of CVA/TIA Cardiac & Pulmonary Exam Cardiac Exam: Normal S1/S2 Heart Sounds Pulmonary Exam: Clear Bilateral Breath Sounds Implantable Cardiac Device Does patient have a Pacemaker or an ICD?: No Airway Exam Known Difficult Airway: No Mallampati Class: 2 Mouth Opening: Normal (> 3cm) Thyromental Distance: Greater than 3 cm Neck Range of Motion: Full ROM Neck Circumference: Normal Teeth Condition: Normal Dentition ASA Classification ASA Score: ASA 2 Emergency Case?: No NPO Status NPO Status: NPO Clears >2 hours, Solids >8 hours Status Status: Negative HCG Anesthesia Plan Resuscitation Status: Full Code Anesthesia Technique: General Anesthesia Airway Planned: Endotracheal Tube Pain Management: Surgeon and patient request nerve block Monitors Used: Standard Monitors Preoperative Comments:: 53 yo female for shoulder scope. Sig PmHx: anxiety/depression, former smoker, occ EtOH. Previous Anes: - colo, prop, natural airway, no issues.
[2023-04-30] MEDS: Lactated Ringers 1,000 ML 30 ML IV ×2 (11:15→15:16)
--- NOTE | 2023-04-30 12:18 | W.ANESNERVE ---
Nerve Block Single Injection Procedure Date and Time Date Performed: 04/30/23 Procedure Start: 12:01 Location Where Procedure Performed Procedure Location: Day Surgery Unit Reason Performed: Postoperative Analgesia Requesting Provider: Isaac Parker Timeout Performed Timeout Performed: Yes Monitoring Used ECG, Blood Pressure and SpO2 Sterility Sterility: Hand Hygiene, Surgical Cap, Surgical Mask and Chlorhexidine Sedation Given During Procedure Sedation Given (Indicate Dose Given): Versed IV Dose:: 2 mg Patient Mental Status Patient Mental Status: Sedate with meaningful communication Nerve Block 1st Nerve Block: Laterality: Right Block Type: Interscalene Ultrasound Image Saved?: Yes Needle / Catheter Used: 100mm SonoPlex II Local Anesthetic Bolus (Indicate Dose Given): Lidocaine used for local infiltration of skin, Injected in 3-5ml increments after negative blood aspiration, Bupivacaine 0.5% Dose:: 10 ml and Exparel Dose:: 7 ml Additives (Indicate Dose Given): None Ultrasound: Sterile probe cover and gel used Nerve Stimulator: Supplement to Ultrasound use and No twitch or parasthesia noted < 0.5 mA Paresthesia: None Procedure Tolerated: No Complications and Patient tolerated well Procedure Outcome: Successful Performed By: Alexander Vilchis
[2023-04-30] MEDS: ceFAZolin 2 GM/50 ML BAG IVPB (12:44)
[2023-04-30] MEDS: Bupivacaine 0.25% Pres-Free 30 ML VIAL (15:14)
[2023-04-30] MEDS: EPINEPHrine 10 MG/10 ML ML (15:15)
[2023-04-30] MEDS: Ketorolac 15 MG/ML VIAL IVP (16:18)
== END 2023-04-30 17:33 | disposition home or self-care (01) ==
LOC: SUR 09:42
PROVIDERS: PCP Nurse Practitioner; Visit Provider Student in an Organized Health Care Education/Training Program
PROC: (CPT 29827; principal; 2023-04-30 13:00)
DX: M75.01 Adhesive capsulitis of right shoulder (principal); M75.51 Bursitis of right shoulder; S43.431A Superior glenoid labrum lesion of right shoulder, initial encounter; X58.XXXA Exposure to other specified factors, initial encounter; M75.101 Unspecified rotator cuff tear or rupture of right shoulder, not specified as traumatic
CPT/HCPCS: 29827; 29828; 29823; 29826; 23700; 76942; J0690; J1100; J1885; J2250; J2371; J2405

== ENCOUNTER → 2023-09-28 02:00 | Outpatient (CLI) | payer OTHER, SELFPAY ==
--- NOTE | 2023-09-28 06:45 | DI.MAMMO_ITS ---
Exam(s) MAMMO SCREENING EXAM: MAMMO SCREENING CLINICAL HISTORY: screening,z12.39. TECHNIQUE: Bilateral full field digital CC and MLO mammographic images were obtained with 3D tomosyn thesis and utilizing computer aided detection (CAD). COMPARISON: Prior mammograms were reviewed. FINDINGS: There has been no significant change in the appearance and distribution of the fibroglandular tissue. Changes related to prior bilateral reduction surgery appear stable. There are obvious no new spiculated masses nor malignant appearing microcalcification groups. There is no significant architectural distortion nor skin thickening-retraction. IMPRESSION: No radiographic evidence of malignancy. BI-RADS Category 2 - Benign Findings Breast Density - Category B - Scattered areas of fibroglandular density Breast density Category C or D implies that the patient has dense breast tissue. Dense breast tissue can make it harder to find cancer on a mammogram. Dense breast tissue is also associated with an incr eased risk of breast cancer. This information about the result of the mammogram report was provided to the patient to raise their awareness. Use this report when you speak with the patient about their risks for breast cancer, which includes their family history. At that time, you may recommend additional screening tests (Ultrasoun d or MRI) as these tests may add significant information. A negative radiographic report should not delay biopsy if a dominant or clinically suspicious mass is present. Up to ten percent of cancers are not identified on mammography. A negative report may reinforce clinical impression. Adenosis and dense breasts may obscure an underlying neoplasm. False positive reports average 6 to 10%. Patient will receive a letter notifying them of these results.
== END ==
PROVIDERS: PCP Nurse Practitioner; Visit Provider Nurse Practitioner
DX: Z12.31 Encounter for screening mammogram for malignant neoplasm of breast (principal)
CPT/HCPCS: 77063; 77067